=== PATIENT | male | born 1975 | race Two or more races ===

== ENCOUNTER 2019-05-04 10:12 | Day surgery (SDC) | payer OTHER ==
[~2019-05-04] VITALS: Ht 167.6 cm; Wt 72.1 kg
[2019-05-04] MEDS ORDERED: AMLODIPINE (10:44)
[2019-05-04] MEDS ORDERED: ACYCLOVIR (10:44)
[2019-05-04] MEDS ORDERED: PANTOPRAZOLE (10:44)
[2019-05-04 10:51] VITALS: Ht 167.6 cm; Wt 72.1 kg
[2019-05-04 11:31] VITALS: BP 143/89; PULSE 66; RESP 18
[2019-05-04] MEDS ORDERED: LIDOCAINE 4% SOLUTION 50 ML BTL ONE (12:11)
[2019-05-04] MEDS ORDERED: FENTAnyl 50 MCG/ML VIAL ONE (12:53)
[2019-05-04] MEDS ORDERED: MIDAZOLAM 1 MG/ML 2 ML INJ ONE ×2 (12:53)
[2019-05-04 13:00] VITALS: BP 132/95; PULSE 74; RESP 16
== END 2019-05-04 14:57 | disposition home or self-care (01) ==
LOC: GIL 10:12
PROVIDERS: ATTEND Internal Medicine Gastroenterology
DX: K29.30 Chronic superficial gastritis without bleeding (principal); K20.9 Esophagitis, unspecified; I10 Essential (primary) hypertension; R63.4 Abnormal weight loss; Z68.25 Body mass index [BMI] 25.0-25.9, adult
CPT/HCPCS: 43239; 88305; 88312; J2250; J3010; Z7610